=== PATIENT | female | born 1960 | race African-American/Black ===

== ENCOUNTER 2016-06-24 22:27 | Emergency (ER) | payer MEDICAID, OTHER ==
[~2016-06-24 22:27] MED LIST: ASPI81TA11 OR; ATOR80TA41 PO; EXTR500C PO; FLUT1SPR9; IBUP400T20 PO; IBUP800; LIPI80TA PO; LISI10TA3 PO; PANT20 PO; PRIL40CA PO; ROBA750T3 PO
[2016-06-24 22:29] VITALS: BP 150/83; PULSE 68; RESP 16; TEMP 98.4; O2SAT 96
--- NOTE | 2016-06-24 23:50 | PD ---
HPI Chief Complaint: Foreign Body Time Seen by Provider: 23:37 Travel History International Travel<30 days: No Contact w/Intl Traveler<30days: No Traveled to known affect area: No History of Present Illness HPI The patient is a 55 year old female who presents to the [facility] emergency department with a history of reportedly drinking a strawberry smoothie at approximately 9:30 PM when a family member mentioned that the smoothie seemed to be crunchier then it should be. She was in the process of swallowing her first sip when she realized that there were larger particles in her mouth. She sweeps these particles out and they appeared to be glass. She went through the bag of frozen strawberries and then realized small pieces of glass were in the bag. She reports having some discomfort in her throat. She denies having any abdominal pain. She denies eating or drinking since that episode. She reports that she has had some chest tightness and shortness of breath recently over the last 2 days, however she reports that she has been having more frequent panic attacks. The patient reports that she has not felt well recently since being seen by her primary care physician last week and being started on an antibiotic. She reports that she was also started on new muscle relaxer and omeprazole and sit a Protonix. The patient reports that she felt nauseated and thought it was related to the antibiotics, therefore she discontinued it. She reports that she was on the antibiotic related to a prolonged bout with diarrhea. The patient denies any recent fevers, cough, congestion,abdominal pain, vomiting, diarrhea, urinary symptoms, or neurologic symptoms. PFS Past Medical History Narrative Medical The patient's past medical history is significant for acid reflux, history of hypertension, history of low back pain, hyperlipidemia, seasonal allergies, history of panic attacks, history of renal insufficiency. Hx Anticoagulant Therapy: Yes Cancer: No Cardiovascular Problems: Yes High Cholesterol: Yes Cerebrovascular Accident: Yes Endocrine: No GERD: Yes Genitourinary: No Immune Disorder: No Psychiatric: No Reproductive: No Respiratory: Yes (HISTORY OF BRONCHITIS) Seizures: Yes (WHILE 1977) PNEUMOCCOCAL Vaccine (Year): 2 ?: Not Past Surgical History Narrative Surgical The patient's past surgical history is significant for a bilateral tubal ligation, cardiac surgery after trauma in 1964. Cardiac Surgery: Yes (AFTER TRAUMA 1964) Coronary Artery Bypass Graft: Yes Genitourinary Surgery: Yes (TUBAL LIGATION 1981) Social History Alcohol Use: Yes Tobacco Use: No Substance Use: No Allergies-Medications (Allergen,Severity, Reaction): Coded Allergies: Codeine (Verified Adverse Reaction, Severe, Nausea/Vomiting, 06/24/16) Reported Meds & Prescriptions Reported Meds & Active Scripts Active Lisinopril 10 Mg Tab 10 Mg PO DAILY Lipitor (Atorvastatin Calcium) 80 Mg Tab 80 Mg PO HS Prilosec 40 mg cap (Omeprazole) 40 Mg Cap 40 Mg PO BID Motrin 800 Mg Tab (Ibuprofen) 800 Mg Tab 800 Mg .XX TID PRN Robaxin-750 (Methocarbamol) 750 Mg Tab 750 Mg PO QID PRN Lipitor 80 Mg Tab (Atorvastatin) 80 Mg Tab 80 Mg PO HS Flonase Allergy Relief Ch (Fluticasone Propionate (Nasal)) 50 Mcg/Act Spr 1 [place] NA DAILY Protonix (Pantoprazole Sodium) 20 Mg Tabdr 20 Mg PO DAILY Aspirin EC 81 mg (Aspirin) 81 Mg Tab 81 Mg OR DAILY Reported Extra Strength Acetaminop (Acetaminophen) 500 Mg Cap 500 Mg PO Q4H PRN Ibuprofen 400 Mg Tab 400 Mg PO DAILY PRN Review of Systems Except as stated in HPI: all other systems reviewed are Neg General / Constitutional: No: Fever Eyes: No: Visual changes HENT: Positive: Sore Throat, Neck Pain, No: Headaches, Neck Stiffness Cardiovascular: Positive: Chest Pain or Discomfort, No: Dyspnea on exertion Respiratory: Positive: Shortness of Breath Gastrointestinal: Positive: Indigestion, No: Nausea, Vomiting, Diarrhea, Abdominal Pain, Changes in Bowel Habits, Loss of Appetite Genitourinary: No: Dysuria Musculoskeletal: No: Pain Skin: No Rash Neurologic: No: Weakness Psychiatric: No: Depression Endocrine: No: Polydipsia Hematologic/Lymphatic: No: Easy Bruising Physical Exam Narrative General: The patient is a well-developed well-nourished female in no acute distress. Head and Neck exam: Head is normocephalic atraumatic. Eyes: EOMI, pupils are equal round and reactive to light. Nose: Midline septum with pink mucous membranes Mouth: Dentition unremarkable. Moist mucus membranes. Posterior oropharynx is not erythematous. No tonsillar hypertrophy. Uvula midline. Airway patent. No visible trauma to the mouth, tongue, or posterior oropharynx. Neck: No palpable lymphadenopathy. No nuchal rigidity. No thyromegaly. Cardiovascular: Regular rate and rhythm without murmurs, gallops, or rubs. Lungs: Clear to auscultation bilaterally. No wheezes, rhonchi, or rales. Abdomen: Soft, without tenderness to palpation in all 4 quadrants of the abdomen. No guarding, rebound, or rigidity. Normal bowel sounds are audible. No tenderness on palpation of McBurney's point. Extremities: No clubbing, cyanosis, or edema. 2+ pulses in all 4 extremities. Back: No costovertebral angle tenderness to palpation. Neurologic Exam: Grossly nonfocal. Skin Exam: No rash noted. Intact skin that is warm and dry. Data Data Last Documented VS Vital Signs Date Time Temp Pulse Resp B/P Pulse Ox O2 Delivery O2 Flow Rate FiO2 06/25/16 02:00 70 15 119/82 98 06/24/16 22:29 98.4 Room Air Orders Electrocardiogram (06/24/16 23:22) Complete Blood Count With Diff (06/24/16 23:22) Comprehensive Metabolic Panel (06/24/16 23:22) Creatine Kinase (Cpk) (06/24/16 23:22) Ckmb (Isoenzyme) Profile (06/24/16 23:22) Troponin I (06/24/16 23:22) Prothrombin Time / Inr (Pt) (06/24/16 23:22) Act Partial Throm Time (Ptt) (06/24/16 23:22) Lipase (06/24/16 23:22) Thyroid Stimulating Hormone (06/24/16 23:22) Chest, Single Ap (06/24/16 23:22) Iv Access Insert/Monitor (06/24/16 23:22) Ecg Monitoring (06/24/16 23:22) Oximetry (06/24/16 23:22) Ct Soft Tiss Neck W/O Iv Cont (06/24/16 ) CKMB (06/25/16 00:15) CKMB% (06/25/16 00:15) Oral Rehydration (06/25/16 01:34) Labs Laboratory Tests Test 06/25/16 00:15 White Blood Count 7.3 TH/MM3 Red Blood Count 4.47 MIL/MM3 Hemoglobin 13.3 GM/DL Hematocrit 40.5 % Mean Corpuscular Volume 90.5 FL Mean Corpuscular Hemoglobin 29.8 PG Mean Corpuscular Hemoglobin 32.9 % Concent Red Cell Distribution Width 14.7 % Platelet Count 181 TH/MM3 Mean Platelet Volume 10.6 FL Neutrophils (%) (Auto) 49.2 % Lymphocytes (%) (Auto) 36.7 % Monocytes (%) (Auto) 11.4 % Eosinophils (%) (Auto) 1.9 % Basophils (%) (Auto) 0.8 % Neutrophils # (Auto) 3.6 TH/MM3 Lymphocytes # (Auto) 2.7 TH/MM3 Monocytes # (Auto) 0.8 TH/MM3 Eosinophils # (Auto) 0.1 TH/MM3 Basophils # (Auto) 0.1 TH/MM3 CBC Comment DIFF FINAL Differential Comment Prothrombin Time 11.1 SEC Prothromb Time International 1.0 RATIO Ratio Activated Partial 25.4 SEC Thromboplast Time Sodium Level 141 MEQ/L Potassium Level 4.1 MEQ/L Chloride Level 109 MEQ/L Carbon Dioxide Level 24.2 MEQ/L Anion Gap 8 MEQ/L Blood Urea Nitrogen 17 MG/DL Creatinine 1.26 MG/DL Estimat Glomerular Filtration 53 ML/MIN Rate Random Glucose 102 MG/DL Calcium Level 9.2 MG/DL Total Bilirubin 0.3 MG/DL Aspartate Amino Transf 37 U/L (AST/SGOT) Alanine Aminotransferase 71 U/L (ALT/SGPT) Alkaline Phosphatase 102 U/L Total Creatine Kinase 149 U/L Creatine Kinase MB 1.0 NG/ML Troponin I LESS THAN 0.02 NG/ML Total Protein 7.2 GM/DL Albumin 3.7 GM/DL Lipase 141 U/L Thyroid Stimulating Hormone 2.660 uIU/ML [address] [place] [address] Medical Decision Making Medical Screen Exam Complete: Yes Emergency Medical Condition: Yes Medical Record Reviewed: Yes Interpretation(s) Last Impressions Chest X-Ray 06/24/16 2322 Signed Impressions: Service Date/Time: Friday, June 24, 2016 23:54 - CONCLUSION: Mild cardiomegaly. Clear lungs. Brendon Miller Jr., MD Neck CT 06/24/16 0000 Signed Impressions: Service Date/Time: Saturday, June 25, 2016 00:29 - CONCLUSION: 1. No radiopaque foreign body. Brendon Miller Jr., MD Differential Diagnosis Esophagitis, versus ingestion of foreign body, versus acute coronary syndrome, versus anxiety disorder versus acid reflux Narrative Course During the course of the patients emergency department visit, the patients history, examination, and differential diagnosis were reviewed with the patient. The patient had IV access obtained and blood work sent for analysis. The patient was placed on a vehicle monitor technician with oximetry and blood pressure monitoring. An EKG was done on arrival. The patient's EKG shows a sinus rhythm heart rate of 61, no acute ST segment elevation. The patient is noted to have T waves inverted in V1, V2. The patient was able to tolerate by mouth liquids in the emergency department. The patients laboratory studies were reviewed and remarkable for a white count of 7.3, hemoglobin 13.3, platelets 181 with monocytes of 11.4, CMP is remarkable for chloride of 109, creatinine 1.26, GFR 53, ALT 71, CPK 149, troponin I less than 0.02, lipase 141, TSH 2.66, PT PTT unremarkable Radiology studies were reviewed and remarkable for a chest x-ray that shows mild cardiomegaly, otherwise no acute abnormality. CT scan of the soft tissues of the neck shows no radiopaque foreign bodies. The patient will be discharged home to follow-up with her primary care doctor. The patient is resting comfortably and feels better, is alert and in no distress. The patients results and examination findings were discussed with the patient. The repeat examination is unremarkable and benign. The history, exam, diagnostic testing, and current condition do not suggest any significant pathology to warrant further testing, continued ED treatment, admission, or surgical evaluation at this point. The vital signs have been stable. The patient does not have uncontrollable pain, intractable vomiting, or other significant symptoms. The patient's condition is stable and appropriate for discharge. The patient will pursue further outpatient evaluation with a primary care physician or other designated or consulting physician as indicated in the discharge instructions. The patient expressed understanding and was agreeable with this plan. Diagnosis Primary Impression: Sensation of foreign body in esophagus Additional Impressions: Anxiety disorder Qualified Code: F41.9 - Anxiety disorder, unspecified type Acid reflux Qualified Code: K21.9 - Gastroesophageal reflux disease, esophagitis presence not specified Referrals: Primary Care Physician 2 days Patient Instructions: General Instructions Med/Other Pt SpecificInfo: No Change to Meds Disposition: 01 DISCHARGE HOME Condition: Stable Kayleigh Dumont MD June 24, 2016 23:50
--- NOTE | 2016-06-25 | RADRPT ---
EXAM DATE/TIME: 06/24/2016 23:54 [facility] COMPARISON: CHEST SINGLE AP, October 23, 2010, 17:55. INDICATIONS : Shortness of breath MEDICAL HISTORY : None. SURGICAL HISTORY : CABG. ENCOUNTER: Initial ACUITY: 1 day PAIN SCORE: 0/10 LOCATION: Bilateral chest FINDINGS: A single view of the chest demonstrates the lungs to be symmetrically aerated without evidence of mas s, infiltrate or effusion. Mild cardiomegaly. Osseous structures are intact. Median sternotomy wires . CONCLUSION: Mild cardiomegaly. Clear lungs. Brendon Miller Jr., MD on June 24, 2016 at 23:59 Board Certified Radiologist. This report was verified electronically.
[2016-06-25 00:22] LABS: AUTOMATED NEUTROPHIL # 3.6 TH/MM3 (1.8-7.7); BASOPHIL # 0.1 TH/MM3 (0-0.2); BASOPHIL % 0.8 % (0.0-2.0); EOSINOPHIL # 0.1 TH/MM3 (0-0.4); EOSINOPHIL % 1.9 % (0.0-4.0); HEMATOCRIT 40.5 % (35.0-46.0); HEMO FLAGS DIFF FINAL; LYMPH % 36.7 % (9.0-44.0); LYMPHOCYTE # 2.7 TH/MM3 (1.0-4.8); MEAN CELL VOLUME 90.5 FL (80.0-100.0); MEAN CORPUSCULAR HEMOGLOBIN 29.8 PG (27.0-34.0); MEAN CORPUSCULAR HGB CONC 32.9 % (32.0-36.0); MONO % 11.4 % (0.0-8.0); NEUT % 49.2 % (16.0-70.0); PLATELET COUNT 181 TH/MM3 (150-450); RED BLOOD COUNT 4.47 MIL/MM3 (4.00-5.30); RED CELL DISTRIBUTION WIDTH 14.7 % (11.6-17.2); WHITE BLOOD COUNT 7.3 TH/MM3 (4.0-11.0)
[2016-06-25 00:33] LABS: APTT (PATIENT) 25.4 SEC (24.3-30.1); PROTHROMBIN TIME - PATIENT 11.1 SEC (9.8-11.6)
[2016-06-25 00:45] LABS: ANION GAP 8 MEQ/L (5-15); AST (GOT) 37 U/L (15-37); BICARBONATE 24.2 MEQ/L (21.0-32.0); BLOOD UREA NITROGEN 17 MG/DL (7-18); CHLORIDE 109 MEQ/L (98-107); GLOMERULAR FILTRATION RATE 53 ML/MIN (>89); POTASSIUM 4.1 MEQ/L (3.5-5.1); SODIUM (NA) 141 MEQ/L (136-145)
--- NOTE | 2016-06-25 00:47 | RADRPT ---
EXAM DATE/TIME: 06/25/2016 00:29 [facility] COMPARISON: No previous studies available for comparison. INDICATIONS : Evaluate for foreign body. Patient states finding glass in her smoothie. RADIATION DOSE: 16.21 CTDIvol (mGy) MEDICAL HISTORY : Cardiovascular disease. Gastroesophageal reflux disease. CVA. SURGICAL HISTORY : Tubal ligation. CABG ENCOUNTER: Initial ACUITY: 1 day PAIN SCORE: 2/10 LOCATION: neck TECHNIQUE: Volumetric scanning of the neck was performed. Using automated exposure control and adjustment of th e mA and/or kV according to patient size, radiation dose was kept as low as reasonably achievable to obtain optimal diagnostic quality images. FINDINGS: NASOPHARYNX: The nasopharyngeal airway has a normal configuration. No mucosal thickening or mass is seen. OROPHARYNX: The intrinsic muscles of the tongue are symmetric. The tonsillar pillars are intact. The prevertebr al soft tissues are not thickened. LARYNX: The supraglottic, glottic, and infraglottic structures are intact. PARAPHARYNGEAL: The parapharyngeal space is intact. SALIVARY GLANDS: The parotid and submandibular glands are intact. LYMPH NODES: No enlarged or necrotic-appearing nodes. THYROID: Homogeneous enhancement without evidence of nodule. BONES: Unremarkable. CONCLUSION: 1. No radiopaque foreign body. Brendon Miller Jr., MD on June 25, 2016 at 0:42 Board Certified Radiologist. This report was verified electronically.
[2016-06-25 00:55] LABS: ALKALINE PHOSPHATASE 102 U/L (45-117); ALT (GPT) 71 U/L (10-53); CREATINE KINASE 149 U/L (26-192); TOTAL BILIRUBIN ADULT 0.3 MG/DL (0.2-1.0)
[2016-06-25 02:00] VITALS: BP 119/82
--- NOTE | 2016-06-25 11:15 | EKG ---
Date Performed: 06/25/2016 Time Performed: 00:10:34 PTAGE: 55 years EKG: Sinus rhythm WITH FIRST DEGREE AV BLOCK ABNORMAL ECG PREVIOUS TRACING : 04/26/2011 00.19 DOCTOR: Yusuf Castro Interpretating Date/Time 06/25/2016 11:13:10
[2016-08-07] MEDS ORDERED: LISI10TA3 PO (13:06)
== END 2016-06-25 02:06 | disposition home or self-care (01) ==
LOC: NEPE 22:27
DX: F41.9 Anxiety disorder, unspecified (principal); R94.31 Abnormal electrocardiogram [ECG] [EKG]; K21.9 Gastro-esophageal reflux disease without esophagitis; I51.7 Cardiomegaly; I10 Essential (primary) hypertension; Z79.01 Long term (current) use of anticoagulants
CPT/HCPCS: 70490; 71010; 80053; 82550; 82552; 83690; 84443; 84484; 85025; 85610; 85730; 93005

== ENCOUNTER 2016-09-19 14:09 | Observation (INO) | payer MEDICAID ==
[~2016-09-19] VITALS: Ht 157.5 cm; Wt 89.0 kg
[2016-09-19] VITALS (8 sets, daily range): BP systolic 147–225; BP diastolic 74–109; PULSE 58–80; RESP 20–22; TEMP 98.2; O2SAT 96–99
--- NOTE | 2016-09-19 14:18 | PD ---
Physical Exam Time Seen by Provider: 14:16 Narrative 55yo F c/o chest pain, SOB, and HTN since Saturday. Had upper and lower colonoscopy on Saturday and says symptoms have worsened since then. Took BP medication this morning. Denies hemoptysis. +mucous production. Patient seen in triage. VS reviewed. Patient awaiting bed placement. Data Data Last Documented VS Vital Signs Date Time Temp Pulse Resp B/P Pulse Ox O2 Delivery O2 Flow Rate FiO2 09/19/16 14:10 98.2 58 22 225/109 96 MDM Supervised Visit with RAFAEL: Mitra Rodrigues Sep 19, 2016 14:18
[2016-09-19 15:08] LABS: AUTOMATED NEUTROPHIL # 2.5 TH/MM3 (1.8-7.7); BASOPHIL % 0.7 % (0.0-2.0); EOSINOPHIL # 0.1 TH/MM3 (0-0.4); EOSINOPHIL % 1.4 % (0.0-4.0); HEMATOCRIT 41.3 % (35.0-46.0); HEMO FLAGS DIFF FINAL; LYMPH % 45.2 % (9.0-44.0); LYMPHOCYTE # 2.9 TH/MM3 (1.0-4.8); MEAN CELL VOLUME 90.7 FL (80.0-100.0); MEAN CORPUSCULAR HEMOGLOBIN 29.9 PG (27.0-34.0); MONO % 12.8 % (0.0-8.0); NEUT % 39.9 % (16.0-70.0); PLATELET COUNT 207 TH/MM3 (150-450); RED BLOOD COUNT 4.56 MIL/MM3 (4.00-5.30); RED CELL DISTRIBUTION WIDTH 15.4 % (11.6-17.2); WHITE BLOOD COUNT 6.4 TH/MM3 (4.0-11.0)
--- NOTE | 2016-09-19 15:16 | RADRPT ---
EXAM DATE/TIME: 09/19/2016 15:05 [facility] COMPARISON: No previous studies available for comparison. INDICATIONS : Chest pain, shortness of breath, and high blood pressure for 6 days. MEDICAL HISTORY : Cardiovascular disease. Gastroesophageal reflux disease. CVA. SURGICAL HISTORY : CABG. ENCOUNTER: Initial ACUITY: 4 - 6 days PAIN SCORE: 2/10 LOCATION: Bilateral chest FINDINGS: The lungs are clear. The heart is minimally enlarged. The pulmonary vascularity is normal. There is n o evidence for infiltrate or failure. The portion of the bony skeleton visualized is unremarkable. CONCLUSION: Compensated cardiomegaly otherwise negative Zhen Marcelino MD FACR on September 19, 2016 at 15:14 Board Certified Radiologist. This report was verified electronically.
[2016-09-19 15:21] LABS: ANION GAP 7 MEQ/L (5-15); BICARBONATE 25.6 MEQ/L (21.0-32.0); BLOOD UREA NITROGEN 17 MG/DL (7-18); CHLORIDE 108 MEQ/L (98-107); GLOMERULAR FILTRATION RATE 85 ML/MIN (>89); POTASSIUM 3.7 MEQ/L (3.5-5.1); SODIUM (NA) 141 MEQ/L (136-145)
[2016-09-19 15:27] LABS: CREATINE KINASE 94 U/L (26-192)
[2016-09-19 15:55] LABS: PROTHROMBIN TIME - PATIENT 11.1 SEC (9.8-11.6)
[2016-09-19] MEDS ORDERED: ONDANSETRON HCL 4 MG/2 ML VIAL IV PUSH ONE (16:30)
[2016-09-19] MEDS ORDERED: hydrALAZINE HCL 20 MG/ML VIAL IV PUSH ONE (16:30)
[2016-09-19] MEDS ORDERED: SODIUM CHLORIDE 0.9% FLUSH 10 ML FLUSH IVF PRN (16:30)
--- NOTE | 2016-09-19 16:48 | PD ---
HPI Chief Complaint: Cardiac Complaint Time Seen by Provider: 16:25 Travel History International Travel<30 days: No Contact w/Intl Traveler<30days: No Traveled to known affect area: No History of Present Illness HPI 55 YO F PMH of HTN, CVA presents to the ED for evaluation of 4 day history of central chest pain, radiating under her right breast. Onset while sleeping, described as tightness. Patient states that the pain waxes and wanes. She endorses associated shortness of breath and intermittent palpitations. Patient also states that "my bloods been high." She endorses dizziness, headache, nausea and mild blurred vision since this morning. She denies difficulties with speech, facial droop, extremity weakness. She endorses compliance with her daily lisinopril. She's taken no medicines to treat her symptoms. She is followed by Dr. Marcus. [facility] Past Medical History Hx Anticoagulant Therapy: Yes Cancer: No Cardiovascular Problems: Yes High Cholesterol: Yes Cerebrovascular Accident: Yes Endocrine: No GERD: Yes Genitourinary: No Immune Disorder: No Implanted Vascular Access Dvce: No Psychiatric: No Reproductive: No Respiratory: Yes (HISTORY OF BRONCHITIS) Seizures: Yes (WHILE 1977) PNEUMOCCOCAL Vaccine (Year): 2 ?: Not Past Surgical History Cardiac Surgery: Yes (AFTER TRAUMA 1964) Coronary Artery Bypass Graft: Yes Genitourinary Surgery: Yes (TUBAL LIGATION 1981) Social History Alcohol Use: No Tobacco Use: No Substance Use: No Allergies-Medications (Allergen,Severity, Reaction): Coded Allergies: Codeine (Verified Adverse Reaction, Severe, Nausea/Vomiting, 06/24/16) Reported Meds & Prescriptions Reported Meds & Active Scripts Active Lisinopril 10 Mg Tab 10 Mg PO DAILY Reported Proventil Hfa 6.7 GM Inh (Albuterol Sulfate) 90 Mcg/Act Aer 2 Puff INH Q6H PRN Naproxen 500 Mg Tab 500 Mg PO BID Robaxin (Methocarbamol) 750 Mg Tab 750 Mg PO QID Pantoprazole (Pantoprazole Sodium) 40 Mg Tab 40 Mg PO DAILY Aspirin 81 Mg Chew 81 Mg CHEW DAILY Review of Systems Except as stated in HPI: all other systems reviewed are Neg Physical Exam Narrative GENERAL: Well-nourished, well-developed obese black female in no acute distress. SKIN: Focused skin assessment warm/dry. HEAD: Normocephalic. EYES: No scleral icterus. No injection or drainage. NECK: Supple, trachea midline. No JVD or lymphadenopathy. CARDIOVASCULAR: Regular rate and rhythm without murmurs, gallops, or rubs. CHEST: Nontender throughout without deformity or crepitus. No retractions or use of accessory muscles. RESPIRATORY: Breath sounds equal bilaterally. No accessory muscle use. GASTROINTESTINAL: Abdomen soft, non-tender, nondistended. Chapman sign negative. Active bowel sounds. MUSCULOSKELETAL: No cyanosis, or edema. NEUROLOGICAL: Awake and alert. Cranial nerves II through XII intact. Motor and sensory grossly within normal limits. Five out of 5 muscle strength in all muscle groups. Normal speech. BACK: Nontender without obvious deformity. No CVA tenderness. Data Data Last Documented VS Vital Signs Date Time Temp Pulse Resp B/P Pulse Ox O2 Delivery O2 Flow Rate FiO2 09/19/16 18:05 76 20 155/86 09/19/16 16:18 99 09/19/16 16:18 Nasal Cannula 2 09/19/16 14:10 98.2 Orders Electrocardiogram (09/19/16 14:19) Complete Blood Count With Diff (09/19/16 14:19) Basic Metabolic Panel (Bmp) (09/19/16 14:19) Ckmb (Isoenzyme) Profile (09/19/16 14:19) Troponin I (09/19/16 14:19) Iv Access Insert/Monitor (09/19/16 14:19) Ecg Monitoring (09/19/16 14:19) Oxygen Administration (09/19/16 14:19) Oximetry (09/19/16 14:19) Prothrombin Time / Inr (Pt) (09/19/16 14:19) Act Partial Throm Time (Ptt) (09/19/16 14:19) B-Type Natriuretic Peptide (09/19/16 14:19) D-Dimer (09/19/16 14:19) Chest, Pa & Lat (09/19/16 14:19) Urinalysis - C+S If Indicated (09/19/16 16:30) Ct Pulmonary Angiogram (09/19/16 16:30) Sodium Chloride 0.9% Flush (Ns Flush) (09/19/16 16:30) Hydralazine Inj (Apresoline Inj) (09/19/16 16:30) Ondansetron Inj (Zofran Inj) (09/19/16 16:30) Chest, Single Ap (09/19/16 16:30) Ct Brain W/O Iv Contrast(Rout) (09/19/16 ) Iohexol 350 Inj (Omnipaque 350 Inj) (09/19/16 18:21) Acetaminophen (Tylenol) (09/19/16 18:45) Hepatic Functional Panel (09/19/16 19:10) Prochlorperazine Inj (Compazine Inj) (09/19/16 19:30) Diphenhydramine Inj (Benadryl Inj) (09/19/16 19:30) Albuterol Neb (Albuterol Neb) (09/19/16 19:30) Diet Heart Healthy (09/19/16 Dinner) Place In Observation (09/19/16 19:31) Activity Bed Rest With Brp (09/19/16 19:31) Vital Signs (Adult) Q4H (09/19/16 19:31) Cardiac Rhythm .As Directed (09/19/16 19:31) Notify Dr: Other .PRN (09/19/16 19:31) Notify Dr. Parameters (09/19/16 19:31) Resp Oxygen Nasal Cannula (09/19/16 ) Ckmb (Isoenzyme) Profile (09/19/16 19:31) Ckmb (Isoenzyme) Profile (09/19/16 22:31) Troponin I (09/19/16 19:31) Troponin I (09/19/16 22:31) Electrocardiogram (09/19/16 19:31) Electrocardiogram (09/19/16 22:31) ^ Obtain (09/19/16 19:31) Sodium Chloride 0.9% Flush (Ns Flush) (09/19/16 19:45) Sodium Chloride 0.9% Flush (Ns Flush) (09/19/16 21:00) Integrative Medicine Physician / Telemetry [id number].[id number] (09/19/16 19:31) Admit Order (Ed Use Only) (09/19/16 19:31) CKMB (09/19/16 20:45) CKMB% (09/19/16 20:45) Labs Laboratory Tests Test 09/19/16 14:59 White Blood Count 6.4 TH/MM3 Red Blood Count 4.56 MIL/MM3 Hemoglobin 13.6 GM/DL Hematocrit 41.3 % Mean Corpuscular Volume 90.7 FL Mean Corpuscular Hemoglobin 29.9 PG Mean Corpuscular Hemoglobin 33.0 % Concent Red Cell Distribution Width 15.4 % Platelet Count 207 TH/MM3 Mean Platelet Volume 10.3 FL Neutrophils (%) (Auto) 39.9 % Lymphocytes (%) (Auto) 45.2 % Monocytes (%) (Auto) 12.8 % Eosinophils (%) (Auto) 1.4 % Basophils (%) (Auto) 0.7 % Neutrophils # (Auto) 2.5 TH/MM3 Lymphocytes # (Auto) 2.9 TH/MM3 Monocytes # (Auto) 0.8 TH/MM3 Eosinophils # (Auto) 0.1 TH/MM3 Basophils # (Auto) 0.0 TH/MM3 CBC Comment DIFF FINAL Differential Comment Prothrombin Time 11.1 SEC Prothromb Time International 1.0 RATIO Ratio Activated Partial 26.0 SEC Thromboplast Time D-Dimer Quantitative (PE/DVT) 1.06 MG/L FEU Sodium Level 141 MEQ/L Potassium Level 3.7 MEQ/L Chloride Level 108 MEQ/L Carbon Dioxide Level 25.6 MEQ/L Anion Gap 7 MEQ/L Blood Urea Nitrogen 17 MG/DL Creatinine 0.84 MG/DL Estimat Glomerular Filtration 85 ML/MIN Rate Random Glucose 74 MG/DL Calcium Level 9.4 MG/DL Total Creatine Kinase 94 U/L Troponin I LESS THAN 0.02 NG/ML B-Type Natriuretic Peptide 126 PG/ML MDM Medical Decision Making Medical Screen Exam Complete: Yes Emergency Medical Condition: Yes Differential Diagnosis PE versus ACS versus hypertensive urgency versus hypertensive emergency versus ICH versus other Narrative Course 55 YO F PMH of HTN, CVA presents to the ED for evaluation of 4 day history of central chest pain, radiating under her right breast. Onset while sleeping, described as tightness, waxes and wanes. She endorses associated shortness of breath and intermittent palpitations. Patient also states that "my bloods been high." She endorses dizziness, headache, nausea and mild blurred vision since this morning. PCP Dr. Marcus. Vitals reviewed. Patient is hypertensive on presentation. Physical exam reveals an obese AAA female in no acute distress. No focal neuro deficits. Chest is clear to auscultation bilaterally. No appreciable M/R/G. No lower extremity edema. She was administered 10 mg hydralazine IV. BP 155/86 on recheck. She was administered IV Compazine and Benadryl and endorsed improvement of her headache. EKG rate 56, sinus bradycardia. SD interval 209, QRS 97, QTC 4 22. T wave abnormality in V3/V4, similar to prior EKG 06/24/16. No acute ST changes. Reviewed by Dr. uCrrie. Cardiac and then negative 1. CXR without acute process per radiology read. CBC, coags, CMP unremarkable. D-dimer 1.06. BNP 126. CTA negative for PE. Head CT negative for acute process. I discussed the patient, workup, plan with Dr. Johnson. Given her risk factors feel admission to chest pain center is warranted. The patient is agreeable to admission to the chest pain center. Please see [facility] notes for disposition. Monet Torres Sep 19, 2016 16:48
--- NOTE | 2016-09-19 16:50 | RADRPT ---
EXAM DATE/TIME: 09/19/2016 16:27 [facility] COMPARISON: CHEST SINGLE AP, June 24, 2016, 23:54. INDICATIONS : Chest pain. MEDICAL HISTORY : Cardiovascular disease. Gastroesophageal reflux disease. CVA. SURGICAL HISTORY : CABG. ENCOUNTER: Initial ACUITY: 4 - 6 days PAIN SCORE: 5/10 LOCATION: Bilateral chest FINDINGS: There is previous bypass with compensated cardiomegaly. There is no overt congestive failure. Anoth er consolidation pleural effusion. The portion of the bony skeleton visualized is unremarkable. CONCLUSION: Bypass with mild compensated cardiomegaly Zhen Marcelino MD FACR on September 19, 2016 at 16:47 Board Certified Radiologist. This report was verified electronically.
[2016-09-19] MEDS ORDERED: PANT40TA3 PO (18:03)
[2016-09-19] MEDS ORDERED: ROBA750T PO (18:03)
[2016-09-19] MEDS ORDERED: ASPI81CH CHEW (18:03)
[2016-09-19] MEDS ORDERED: NAPR500T PO (18:03)
[2016-09-19] MEDS ORDERED: ALBU6.7H INH (18:04)
[2016-09-19] MEDS ORDERED: IOHEXOL 350 MG/ML 10 ML VIAL (for RAD DIAG) IV ONE (18:21)
--- NOTE | 2016-09-19 18:42 | RADRPT ---
EXAM DATE/TIME: 09/19/2016 18:16 [facility] COMPARISON: MRI BRAIN W/O CONTRAST, October 24, 2010, 9:52. CT BRAIN W/O CONTRAST, October 23, 2010, 18:15. INDICATIONS : Patient complains of dizziness and short of breath. RADIATION DOSE: 45.89 CTDIvol (mGy) MEDICAL HISTORY : Stroke. Hypertension. Seizures. SURGICAL HISTORY : CABG Tubal ligation.Endoscopy last Saturday. ENCOUNTER: Initial ACUITY: 3 days PAIN SCALE: 5/10 LOCATION: Bilateral cranial TECHNIQUE: Multiple contiguous axial images were obtained of the head. Using automated exposure control and adj ustment of the mA and/or kV according to patient size, radiation dose was kept as low as reasonably a chievable to obtain optimal diagnostic quality images. DICOM format image data is available electro nically for review and comparison. FINDINGS: Porencephalic areas in the left mid laura, left medial thalamus, and lacunar infarcts in the right anastacio bus pallidus are stable in appearance when compared to prior CT and have previously also been evaluat ed with MR. There is good whiteside-white matter differentiation. The ventricles are normal in size. No evidence of acute hemorrhage, acute infarction, or extra axial fluid collections. Wide windows for bony detail demonstrate the calvarium to be intact. CONCLUSION: 1. No acute findings. 2. 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 Brendon Trejo MD on September 19, 2016 at 18:37 Board Certified Radiologist. This report was verified electronically.
[2016-09-19] MEDS ORDERED: ACETAMINOPHEN 325 MG TAB PO ONE (18:45)
--- NOTE | 2016-09-19 18:58 | RADRPT ---
EXAM DATE/TIME: 09/19/2016 18:22 [facility] COMPARISON: No previous studies available for comparison. INDICATIONS : Short of breath. IV CONTRAST: 75 cc Omnipaque 350 (iohexol) IV RADIATION DOSE: 23.14 CTDIvol (mGy) MEDICAL HISTORY : Seizures. Stroke Hypertension. SURGICAL HISTORY : Tubal ligation. CABGEndoscopy done last Saturday. ENCOUNTER: Initial ACUITY: 3 days PAIN SCALE: 5/10 LOCATION: Bilateral chest TECHNIQUE: Volumetric scanning of the chest was performed using a pulmonary embolism protocol MIP images were re constructed. Using automated exposure control and adjustment of the mA and/or kV according to patien t size, radiation dose was kept as low as reasonably achievable to obtain optimal diagnostic quality images. DICOM format image data is available electronically for review and comparison. Follow-up recommendations for incidentally detected pulmonary nodules are based at a minimum on nodul e size and patient risk factors according to Fleischner Society Guidelines. FINDINGS: PULMONARY ARTERIES: No filling defects are seen in the pulmonary arteries through the segmental level. LUNGS: There is no consolidation or pneumothorax . No concerning pulmonary nodule is visualized. PLEURAE: There is no pleural thickening or pleural effusion. MEDIASTINUM: There is good visualization of the great vessels of the middle mediastinum. No evidence of mediastin al or hilar adenopathy/mass. CONCLUSION: The study is negative for pulmonary embolism. Brendon Trejo MD on September 19, 2016 at 18:55 Board Certified Radiologist. This report was verified electronically.
[2016-09-19] MEDS ORDERED: diphenhydrAMINE HCL 50 MG/ML VIAL IVP ONE (19:30)
[2016-09-19] MEDS ORDERED: PROCHLORPERAZINE INJ 10 MG/2 ML VIAL IVP ONE (19:30)
[2016-09-19] MEDS: RESP: ALBUTEROL 2.5 MG/3 ML NEB (SCH) INH (19:38)
[2016-09-19] MEDS ORDERED: SODIUM CHLORIDE 0.9% FLUSH 10 ML FLUSH IV FLUSH PRN (19:45)
[2016-09-19] MEDS: SODIUM CHLORIDE 0.9% FLUSH 10 ML FLUSH IV FLUSH SCH ×2 (21:03→21:04)
[2016-09-19 21:22] LABS: ALKALINE PHOSPHATASE 80 U/L (45-117); INDIRECT BILIRUBIN 0.3 MG/DL (0.0-0.8); TOTAL BILIRUBIN ADULT 0.4 MG/DL (0.2-1.0)
[2016-09-19 21:23] LABS: ALT (GPT) 33 U/L (10-53)
[2016-09-19 21:24] LABS: CREATINE KINASE 148 U/L (26-192)
[2016-09-19 21:25] LABS: AST (GOT) 41 U/L (15-37)
[2016-09-19 21:36] LABS: CKMB LESS THAN 0.5 NG/ML (0.5-3.6)
[2016-09-20 01:17] LABS: CREATINE KINASE 79 U/L (26-192)
[2016-09-20 04:37] VITALS: PULSE 72
[2016-09-20 05:38] VITALS: BP 124/70; PULSE 60; RESP 18; TEMP 98.4; O2SAT 100
[2016-09-20 07:39] VITALS: BP 115/59; PULSE 70; RESP 14; TEMP 98.7; O2SAT 95
[2016-09-20] MEDS ORDERED: PANTOPRAZOLE SOD 40 MG DELAYED RELEASE TAB PO SCH (09:00)
[2016-09-20] MEDS ORDERED: LISINOPRIL 10 MG TAB PO SCH (09:00)
[2016-09-20] MEDS ORDERED: IBUPROFEN 600 MG TAB PO ONE (09:30)
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
--- NOTE | 2016-09-20 12:03 | RADRPT ---
EXAM DATE/TIME: 09/20/2016 09:29 [facility] COMPARISON: CT PULMONARY ANGIOGRAM, September 19, 2016, 18:22. INDICATIONS : Substernal chest pain with dyspnea. Angina DOSE: 26.9 mCi Tc99m Myoview at stress 8.8 mCi Tc99m Myoview at rest REST HEART RATE: 79 BPM TARGET HEART RATE: 140 BPM MAX HEART RATE: 146 BPM REST BLOOD PRESSURE: 174/96 mmHg MAX BLOOD PRESSURE: none EJECTION FRACTION: > 70% MEDICAL HISTORY : Gastroesophageal reflux disease. Hypertension. Stroke. SURGICAL HISTORY : Tubal ligation. ENCOUNTER: Initial ACUITY: 3 days PAIN SCALE: 6/10 LOCATION: Substernal chest TECHNIQUE: The patient underwent upright treadmill exercise in the chest pain center. Continuous ECG tracing wa s monitored during stress. Gated SPECT imaging was performed after stress, and conventional SPECT im aging was performed at rest. The examination was performed on a SPECT/CT scanner, both attenuation-c orrected and non-corrected datasets were reviewed. FINDINGS: DISTRIBUTION: The maximum perfused segment at stress is in the anterolateral wall. PERFUSION STUDY: The pattern of perfusion at stress is within normal limits. No fixed or reversible perfusion defect i s identified. GATED STUDY: There is intact wall motion and thickening without hypokinetic or dyskinetic segments. CONCLUSION: 1. Left ventricle perfusion is within normal limits. 2. Normal left ventricle wall motion with calculated ejection fraction greater than 70%. RISK CATEGORY: Low (<1% Annual Mortality Rate) Ketan Jefferson MD on September 20, 2016 at 11:59 Board Certified Radiologist. This report was verified electronically.
[2016-09-20] MEDS ORDERED: AMLO5TAB2 PO (12:49)
--- NOTE | 2016-09-20 12:50 | HHI.DCPOC ---
Discharge Care Plan Diagnosis: (1) Chest pain (2) Hypertension Goals to Promote Your Health * To prevent worsening of your condition and complications * To maintain your health at the optimal level Directions to Meet Your Goals Take your medications as prescribed Follow your dietary instruction Follow activity as directed Keep your appointments as scheduled Take your immunizations and boosters as scheduled If your symptoms worsen call your PCP, if no PCP go to Urgent Care Center or Emergency Room Smoking is Dangerous to Your Health. Avoid second hand smoke Call the 24-hour hour crisis hotline for domestic abuse at Domo Butler Sep 20, 2016 12:50
--- NOTE | 2016-09-20 17:19 | TR ---
Date Performed: 09/20/2016 Time Performed: 10:35:16 DOCTOR: Latisha Maldonado DRUG LIST: CLINICAL HISTORY: REASON FOR TEST: Chest pain REASON FOR ENDING: OBSERVATION: CONCLUSION: Antony protocol and NUC ETT performed. Test stopped secondary to reaching target maxi mum heart rate secondary to leg fatigue. No reproducible chest discomfort or pain. Maximum SD=146 Tar get HR Achieved=88.0% Maximum BJ=923/96 Total Exercise Time=5:41. COMMENTS:
--- NOTE | 2016-09-20 17:24 | EKG ---
Date Performed: 09/20/2016 Time Performed: 00:30:20 PTAGE: 55 years EKG: Sinus rhythm WITH FIRST DEGREE AV BLOCK NONSPECIFIC T-WAVE ABNORMALITY ABNORMAL ECG Since PREVIOUS TRACING , no significant change noted PREVIOUS TRACIN09/19/2016 20.52 DOCTOR: Latisha Maldonado Interpretating Date/Time 09/20/2016 17:23:33
--- NOTE | 2016-09-20 17:26 | EKG ---
Date Performed: 09/19/2016 Time Performed: 20:52:32 PTAGE: 55 years EKG: Sinus rhythm NONSPECIFIC ST & T-WAVE ABNORMALITY BORDERLINE ECG Since PREVIOUS TRACING , T waves now flat PREVIOUS TRACIN09/19/2016 14.28 DOCTOR: Latisha Maldonado Interpretating Date/Time 09/20/2016 17:26:04
--- NOTE | 2016-09-20 17:32 | EKG ---
Date Performed: 09/19/2016 Time Performed: 14:28:15 PTAGE: 55 years EKG: SINUS BRADYCARDIA ST DEVIATION AND MODERATE T-WAVE ABNORMALITY, CONSIDER ANTERIOR ISCHEMIA ABNORMAL ECG Since PREVIOUS TRACING , no significant change noted PREVIOUS TRACIN06/25/2016 00.10 DOCTOR: Latisha Maldonado Interpretating Date/Time 09/20/2016 17:31:51
== END 2016-09-20 13:29 | disposition home or self-care (01) ==
LOC: NEPE 14:09 → NEDA 19:33 → NEPHCDU 09-20 01:30
PROVIDERS: ADMIT Internal Medicine Cardiovascular Disease; ATTEND Internal Medicine Cardiovascular Disease
DX: R07.89 Other chest pain (principal); I10 Essential (primary) hypertension; R06.02 Shortness of breath; R11.0 Nausea; K21.9 Gastro-esophageal reflux disease without esophagitis; I51.7 Cardiomegaly; E78.5 Hyperlipidemia, unspecified; E78.00 Pure hypercholesterolemia, unspecified; Z79.82 Long term (current) use of aspirin; Z86.73 Personal history of transient ischemic attack (TIA), and cerebral infarction without residual deficits; I44.0 Atrioventricular block, first degree; E66.9 Obesity, unspecified; Z79.899 Other long term (current) drug therapy; Z87.891 Personal history of nicotine dependence; I71.4 Abdominal aortic aneurysm, without rupture; Z95.1 Presence of aortocoronary bypass graft
CPT/HCPCS: 70450; 71010; 71020; 71275; 78452; 80048; 80076; 82550; 82552; 83880; 84484; 85025; 85379; 85610; 85730; 93005; 93017; 94640; 94664; 96374; 96375; 99285; A9502; G0378; J0360; J0780; J1200; J2405; J7613; Q9967

== ENCOUNTER 2017-03-23 09:32 | Observation (INO) | payer BC, MEDICAID ==
[2017-03-23] VITALS (9 sets, daily range): BP systolic 102–148; BP diastolic 57–95; PULSE 58–97; RESP 16–19; TEMP 96.9–98.1; O2SAT 96–100
[~2017-03-23] VITALS: Ht 157.5 cm; Wt 90.0 kg
[~2017-03-23 09:32] MED LIST changes: +ALBU6.7H INH; +AMLO5TAB2 PO; +ASPI-516 CHEW; -ASPI81TA11 OR; -ATOR80TA41 PO; -EXTR500C PO; -FLUT1SPR9; -IBUP400T20 PO; -IBUP800; -LIPI80TA PO; +NAPR500T2 PO; -PANT20 PO; +PANT40TA3 PO; -PRIL40CA PO; +ROBA750T PO; -ROBA750T3 PO
[2017-03-23] MEDS ORDERED: ATOR20TA15 PO (09:57)
[2017-03-23] MEDS ORDERED: AMLO10TA2 PO (09:57)
[2017-03-23 10:09] LABS: AUTOMATED NEUTROPHIL # 2.4 TH/MM3 (1.8-7.7); BASOPHIL % 0.7 % (0.0-2.0); EOSINOPHIL % 0.7 % (0.0-4.0); HEMATOCRIT 44.2 % (35.0-46.0); LYMPH % 48.1 % (9.0-44.0); LYMPHOCYTE # 2.9 TH/MM3 (1.0-4.8); MEAN CORPUSCULAR HEMOGLOBIN 30.8 PG (27.0-34.0); MEAN CORPUSCULAR HGB CONC 33.9 % (32.0-36.0); MEAN PLATELET VOLUME 10.5 FL (7.0-11.0); MONO % 10.7 % (0.0-8.0); MONOCYTE # 0.6 TH/MM3 (0-0.9); NEUT % 39.8 % (16.0-70.0); PLATELET COUNT 219 TH/MM3 (150-450); RED BLOOD COUNT 4.86 MIL/MM3 (4.00-5.30); RED CELL DISTRIBUTION WIDTH 14.9 % (11.6-17.2)
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
[2017-03-23 10:19] LABS: INTERNATIONAL NORMALIZED RATIO 1.1 RATIO; PROTHROMBIN TIME - PATIENT 10.8 SEC (9.8-11.6)
[2017-03-23 10:35] LABS: BICARBONATE 23.4 MEQ/L (21.0-32.0); CALCIUM 9.1 MG/DL (8.5-10.1); CREATININE 1.21 MG/DL (0.50-1.00)
--- NOTE | 2017-03-23 11:22 | RADRPT ---
EXAM DATE/TIME: 03/23/2017 11:09 [facility] COMPARISON: CT BRAIN W/O CONTRAST, September 19, 2016, 18:16. INDICATIONS : Left upper extremity weakness today. RADIATION DOSE: 56.77 CTDIvol (mGy) MEDICAL HISTORY : Stroke. Seizures. Hypertension. SURGICAL HISTORY : CABG ENCOUNTER: Initial ACUITY: 1 day PAIN SCALE: 2/10 LOCATION: Bilateral head TECHNIQUE: Multiple contiguous axial images were obtained of the head. Using automated exposure control and adj ustment of the mA and/or kV according to patient size, radiation dose was kept as low as reasonably a chievable to obtain optimal diagnostic quality images. DICOM format image data is available electro nically for review and comparison. FINDINGS: CEREBRUM: Chronic ischemic changes in the brainstem and left thalamus. An old lacunar infarct right basal gangl ia. The ventricles are normal for age. No evidence of midline shift, mass lesion, hemorrhage or acut e infarction. No extra-axial fluid collections are seen. POSTERIOR FOSSA: The cerebellum is intact. The 4th ventricle is midline. The cerebellopontine angle is unremarkable. EXTRACRANIAL: The visualized portion of the orbits is intact. SKULL: The calvaria is intact. No evidence of skull fracture. CONCLUSION: Chronic ischemic changes. No acute intracranial abnormality. Sb Guerrero MD on March 23, 2017 at 11:17 Board Certified Radiologist. This report was verified electronically.
[2017-03-23] MEDS ORDERED: ACETAMINOPHEN 325 MG TAB PO ONE (12:00)
[2017-03-23] MEDS ORDERED: SODIUM CHLORIDE 0.9% FLUSH 10 ML FLUSH IV FLUSH PRN (15:15)
[2017-03-23] MEDS ORDERED: ENALAPRILAT 1.25 MG/ML VIAL IV PUSH PRN (15:15)
[2017-03-23] MEDS ORDERED: ALBUTEROL SULFATE 90 MCG/ACT HFA 8 GM INHALER INH PRN (15:15)
[2017-03-23] MEDS ORDERED: DEXTROSE 50% IN WATER 50 ML VIAL(D50) IV PUSH PRN (15:15)
[2017-03-23] MEDS ORDERED: GLUCAGON 1 MG/ML VIAL OTHER PRN (15:15)
--- NOTE | 2017-03-23 16:19 | RADRPT ---
EXAM DATE/TIME: 03/23/2017 15:37 [facility] COMPARISON: CT BRAIN W/O CONTRAST, September 19, 2016, 18:16. INDICATIONS : Left sided weakness. MEDICAL HISTORY : Hypertension. Cardiovascular disease Cardiovascular disease. SURGICAL HISTORY : CABG Tubal ligation. ENCOUNTER: Initial ACUITY: 1 day PAIN SCORE: 0/10 LOCATION: cranial TECHNIQUE: Multiplanar, multisequence MRI of the brain was performed without contrast. FINDINGS: There is no evidence for intracranial hemorrhage, mass effect, mass lesions, edema, or extra-axial fl uid collections. There are no signs of acute infarction for technique. The diffusion portion is unre markable. Slight degree of brain atrophy is seen. Slight periventricular white matter changes are see n nonspecific mostly consistent with chronic small vessel ischemic changes. Approximate 1.1 cm old la cunar infarct in medial thalamus on the left is again seen and there are also old ischemic changes an d/or lacunar infarctions within the laura chronic in nature. CONCLUSION: Chronic atrophic and small vessel ischemic changes without any evidence for acute hem orrhage or mass effect. Sushant Newberry MD on March 23, 2017 at 16:15 Board Certified Radiologist. This report was verified electronically.
--- NOTE | 2017-03-23 16:21 | RADRPT ---
EXAM DATE/TIME: 03/23/2017 15:37 [facility] COMPARISON: MRI BRAIN W/O CONTRAST, March 23, 2017, 15:37. CT BRAIN W/O CONTRAST, March 23, 2017, 11:09. INDICATIONS : Left sided weakness. MEDICAL HISTORY : Hypertension. Cardiovascular disease Hypercholesterolemia. SURGICAL HISTORY : CABG Tubal ligation. ENCOUNTER: Initial ACUITY: 1 day PAIN SCORE: 0/10 LOCATION: cranial Please note a normal MRA of the brain does not entirely exclude the possibility of a small aneurysm, nor the possibility of distal intracranial vessel disease. TECHNIQUE: 3D time of flight MRA was performed. Source images, multiplanar STS MIP, and 3D volume MIP reconstru ctions were reviewed. FINDINGS: No significant vascular malformations, vessel truncation or aneurysmal dilatations are seen. CONCLUSION: Unremarkable study. Sushant Newberry MD on March 23, 2017 at 16:17 Board Certified Radiologist. This report was verified electronically.
[2017-03-23] MEDS: HEPARIN SODIUM - SQ 10,000 UNITS/ML VIAL SQ SCH (17:31)
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
[2017-03-23] MEDS: INSULIN ASPART SUPPLEMENTAL SCALE SQ SCH ×2 (18:10→20:13)
[2017-03-23] MEDS: ACETAMINOPHEN 325 MG TAB PO PRN (18:48)
--- NOTE | 2017-03-23 18:57 | RADRPT ---
EXAM DATE/TIME: 03/23/2017 18:25 [facility] COMPARISON: No previous studies available for comparison. INDICATIONS : Cerebrovascular accident. MEDICAL HISTORY : Hypercholesterolemia. CVA. Seizures. HTN. Bronchitis. GERD. Syphilis. Pyelonephritis. Clotting pr oblems. Anemia. SURGICAL HISTORY : CABG. Tubal ligation. Ectopic . Blood tranfusions. ENCOUNTER: Initial ACUITY: 1 day PAIN SCORE: 0/10 LOCATION: Bilateral neck PEAK SYSTOLIC VELOCITIES (cm/sec): ICA/CCA RATIO: Right: 1.0 Left: 1.1 ICA: Right: 83.6 Left: 101.8 CCA: Right: 85.3 Left: 93.0 ECA: Right: 80.9 Left: 66.8 VERTEBRAL: Right: 51.2 antegrade Left: 83.8 antegrade Elevated flow velocities and ICA/CCA ratios have been found to correlate with increased degrees of vessel stenosis, calculated as percentage of diameter relative to a normal segment of distal ICA/CCA FINDINGS: Antegrade flow is seen in both vertebral arteries. There is minimal atherosclerotic plaquing at the o rigin of both ICAs without any significant stenosis. CONCLUSION: No evidence for hemodynamically significant stenosis. Sushant Newberry MD on March 23, 2017 at 18:55 Board Certified Radiologist. This report was verified electronically.
[2017-03-23] MEDS: ATORVASTATIN 20 MG TAB PO SCH (20:08)
[2017-03-23] MEDS: SODIUM CHLORIDE 0.9% FLUSH 10 ML FLUSH IV FLUSH SCH (20:09)
[2017-03-24] VITALS (10 sets, daily range): BP systolic 105–147; BP diastolic 60–88; PULSE 62–75; RESP 16–18; TEMP 97.7–98.4; O2SAT 95–98
[2017-03-24 04:42] LABS: CHOLESTEROL/ HDL RATIO 5.5 RATIO; HDL CHOLESTEROL 42.5 MG/DL (40.0-60.0)
[2017-03-24] MEDS: ACETAMINOPHEN 325 MG TAB PO PRN (08:03)
[2017-03-24] MEDS: SODIUM CHLORIDE 0.9% FLUSH 10 ML FLUSH IV FLUSH SCH ×2 (08:04→21:00)
[2017-03-24] MEDS: HEPARIN SODIUM - SQ 10,000 UNITS/ML VIAL SQ SCH ×4 (08:04→22:09)
[2017-03-24] MEDS: INSULIN ASPART SUPPLEMENTAL SCALE SQ SCH ×4 (08:35→21:00)
[2017-03-24] MEDS ORDERED: PANTOPRAZOLE SOD 40 MG DELAYED RELEASE TAB PO SCH (09:00)
[2017-03-24] MEDS ORDERED: ASPIRIN 325 MG TAB PO SCH (09:00)
--- NOTE | 2017-03-24 09:47 | HHI.PR ---
Subjective Remarks Follow-up for left-sided weakness Patient stated that her left arm weakness is improving drastically. She stated that she still has the left leg weakness but then she stated that this is been chronic. She said weakness due to her chronic pain but she has been dealing with this issue for a long time. Patient stated that she asked to see pain management but her primary care would not give a referral so she is now seeing a different physician. Patient has no other complaints. Discussed case with patient's nurse and no new events. Objective Vitals Vital Signs Date Time Temp Pulse Resp B/P (MAP) Pulse Ox O2 Delivery O2 Flow Rate FiO2 03/24/17 07:40 98.4 71 16 117/74 (88) 97 03/24/17 04:03 98.1 62 17 105/60 (75) 96 03/23/17 23:17 98.1 62 17 102/57 (72) 96 03/23/17 23:00 64 03/23/17 21:07 98 03/23/17 20:41 98.0 58 17 122/82 (95) 96 03/23/17 19:48 18 03/23/17 17:00 97.9 65 18 125/83 (97) 99 03/23/17 16:05 03/23/17 14:15 97.8 78 16 137/78 (97) 99 Room Air 03/23/17 14:00 0 03/23/17 11:55 67 17 143/95 (111) 100 Room Air 03/23/17 09:49 78 19 142/78 (99) 100 Room Air I/O 03/23/17 03/23/17 03/23/17 03/24/17 03/24/17 03/24/17 07:00 15:00 23:00 07:00 15:00 23:00 Intake Total 360 ml Balance 360 ml Intake Oral 360 ml # Voids 2 1 Result Diagram: 03/23/1795703/23/1758 Objective Remarks GENERAL: in NAD CARDIOVASCULAR: Regular rate and rhythm without murmurs, gallops, or rubs. RESPIRATORY: Breath sounds equal bilaterally. No accessory muscle use. GASTROINTESTINAL: Abdomen soft, non-tender, nondistended. MUSCULOSKELETAL: No cyanosis, or edema. BACK: Nontender without obvious deformity. No CVA tenderness. 5/5 upper and lower ext strength Medications and IVs Current Medications Acetaminophen (Tylenol) 650 mg ONCE ONCE PO Last administered on 03/23/17at 12: 24; Start 03/23/17 at 12:00; Stop 03/23/17 at 12:01; Status DC Sodium Chloride (NS Flush) 2 ml BID IV FLUSH Last administered on 03/24/17at 08: 04; Start 03/23/17 at 21:00 Sodium Chloride (NS Flush) 2 ml UNSCH PRN IV FLUSH FLUSH AFTER USING IV ACCESS ; Start 03/23/17 at 15:15 Enalaprilat (Vasotec Inj) 1.25 mg Q4H PRN IV PUSH For SBP >/= 180 or DBP >/= 100; Start 03/23/17 at 15:15 Aspirin (Aspirin) 325 mg DAILY PO Last administered on 03/24/17at 08:03; Start at 09:00 Insulin Aspart (NovoLOG SUPPLEMENTAL SCALE) 1 ACHS SQ ; Start 03/23/17 at 17:00 Dextrose (D50w (Vial) Inj) 50 ml UNSCH PRN IV PUSH HYPOGLYCEMIA-SEE COMMENTS; Start 03/23/17 at 15:15 Glucagon (Glucagon Inj) 1 mg UNSCH PRN OTHER HYPOGLYCEMIA-SEE COMMENTS; Start 03/23/17 at 15:15 Heparin Sodium (Porcine) (Heparin Inj) 5,000 units Q8H SQ Last administered on 03/24/17at 08:04; Start 03/23/17 at 16:00 Albuterol Sulfate (Proair Hfa Inh) 2 puff Q6H PRN INH SHORTNESS OF BREATH; Start 03/23/17 at 15:15 Atorvastatin Calcium (Lipitor) 20 mg HS PO Last administered on 03/23/17at 20:08 ; Start 03/23/17 at 21:00 Pantoprazole Sodium (Protonix) 40 mg DAILY PO Last administered on 03/24/17 08: 03; Start 03/24/17 at 09:00 Acetaminophen (Tylenol) 650 mg Q6H PRN PO headache Last administered on at 08:03; Start 03/23/17 at 17:45 A/P Assessment and Plan 56 years old female presented with history of Left arm and leg weakness and numbness rule out TIA -CT of head showed old lacunar infarct -Pending EEG that is being done this morning. -MRI/MRA of the brain unremarkable for any acute ischemia. -No events over telemetry. -MRI of the cervical spine ordered by neurologist. -Patient currently on aspirin, lisinopril, and statin. -Pending consult from neurologist. Pending 2-D echo. Syncope mostly illicit drug effect -Most likely secondary to marijuana use. ruling out TIA. Workup so far negative. Hypertension/Hyperlipidemia -Home medication resumed. Marijuana use -Patient counseled and advised to quit smoking marijuana Heparin and SCD for DVT prophylaxis Discharge Planning Possible discharge later on today if cleared by neurologist. Larisa Mojica MD Mar 24, 2017 09:47
--- NOTE | 2017-03-24 13:13 | EKG ---
Date Performed: 03/23/2017 Time Performed: 10:05:57 PTAGE: 56 years EKG: Sinus rhythm NORMAL ECG Compared to PREVIOUS TRACING , the T-wave changes laterally have improved. There continues to be mini mal T-wave change anteroseptally that is nonspecific. PREVIOUS TRACIN09/20/2016 00.30 DOCTOR: William Rizvi Interpretating Date/Time 03/24/2017 13:12:53
--- NOTE | 2017-03-24 13:26 | RADRPT ---
EXAM DATE/TIME: 03/24/2017 12:44 [facility] COMPARISON: No previous studies available for comparison. INDICATIONS : Myelopathy. Left side weakness. MEDICAL HISTORY : Hypertension. Cerebrovascular disease. Hypercholesterolemia. SURGICAL HISTORY : CABG Tubal ligation. ENCOUNTER: Initial ACUITY: 2 day PAIN SCORE: 0/10 LOCATION: Paraspinal TECHNIQUE: Screening MRI of the entire spinal axis was performed in the sagittal and axial planes. FINDINGS: Views of the cervical spine demonstrates mild broad-based disc bulge at C5-6. Mild neural foraminal n arrowing. Mild asymmetric left-sided protrusion at C6-7 without canal stenosis. There is some slight ligamentum flavum thickening at C6-7 level. There is a suggestion of minimal T2 signal abnormality in the cord at C3-4, C5-6 and C6-7 levels. The cord is normal in caliber. The remainder of the cord is otherwise normal. The remainder of the cervical spine is otherwise normal. Slight kyphosis of the thoracic spine but no disc herniation or canal stenosis. No compression fractu re. Normal lumbar spine. No disc herniation. No fracture. CONCLUSION: 1. There is suggestion of some minimal T2 signal abnormality in the cord at C3-4, C5-6 and C6-7. 2. The thoracic and lumbar spines are normal. 1. Sb Guerrero MD on March 24, 2017 at 13:19 Board Certified Radiologist. This report was verified electronically.
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
[2017-03-24] MEDS ORDERED: GADODIAMIDE PF 287 MG/ML 20 ML VIAL (for RAD MRI) IVCONTRAST ONE (16:05)
--- NOTE | 2017-03-24 16:39 | RADRPT ---
EXAM DATE/TIME: 03/24/2017 15:56 [facility] COMPARISON: MRI SCREENING SPINE W/O CONTRAST, March 24, 2017, 12:44. INDICATIONS : Extremity weakness. CONTRAST: 1 cc Omniscan (gadodiamide) IV MEDICAL HISTORY : Hypertension. Cardiovascular disease Hypercholesterolemia. SURGICAL HISTORY : Tubal ligation. CABG ENCOUNTER: Initial ACUITY: 2 day PAIN SCORE: 0/10 LOCATION: Paraspinal TECHNIQUE: Multiplanar, multisequence MRI examination of the cervical spine was performed. FINDINGS: The marrow signal appears intact, and the spinal cord appears intact with technique. There is no abno rmal signal within the spinal cord and there is no abnormal enhancement and the questioned area on th e patient's screening examination was probably artifactually created. C2-C3: No appreciable compromise to the thecal sac, exiting nerve roots are seen. The neural forami na are patent bilaterally. No appreciable thecal sac stenosis is seen. C3-C4: No appreciable compromise to the thecal sac, exiting nerve roots are seen. The neural forami na are patent bilaterally. No appreciable thecal sac stenosis is seen. C4-C5: No appreciable compromise to the thecal sac, exiting nerve roots are seen. The neural forami na are patent bilaterally. No appreciable thecal sac stenosis is seen. C5-C6: Moderate degenerative changes are seen within the disc space and facets. There is slight neura l foramina compromise bilaterally due to bulging disc and hypertrophic changes. Slight bulging disc a nd hypertrophic changes are seen with indentation on the thecal sac and no significant compromise to the thecal sac. C6-C7: Slight bulging disc and hypertrophic changes are seen with indentation on the thecal sac and no significant compromise to the thecal sac or the exiting nerve roots.Slight degenerative changes ar e seen within the disc space and facets. C7-T1: No appreciable compromise to the thecal sac, exiting nerve roots are seen. The neural foramin a are patent bilaterally. No appreciable thecal sac stenosis is seen. CONCLUSION: Slight neural foramina compromise bilaterally C5-C6. Sushant Newberry MD on March 24, 2017 at 16:34 Board Certified Radiologist. This report was verified electronically.
[2017-03-24] MEDS ORDERED: LIDOCAINE HCL 5% PATCH T-DERMAL SCH (21:00)
[2017-03-24] MEDS: ATORVASTATIN 20 MG TAB PO SCH (22:09)
[2017-03-25 04:04] VITALS: BP 111/70; PULSE 66; RESP 18; TEMP 98.1; O2SAT 98
--- NOTE | 2017-03-25 05:07 | MG ---
cc: QUEENIE FELIZ MD Lab No: [id number] Date: 03/24/2017 Sex: F Race: DATE OF 1960 FINDINGS 8-10 Hz alpha activity, 20-50 microvolts, low-amplitude beta in the frontal channels. Good anterior-posterior gradient. No lateralizing features noted. Occasional slow rolling eye movements. Good driving with photic stimulation. No cardiac dysrhythmia. INTERPRETATION Normal awake EEG. Clinical correlation. Queenie Feliz MD MG/SSB /10:54 PM /4:59 AM
[2017-03-25 08:03] VITALS: BP 128/83; PULSE 68; RESP 16; TEMP 97.9; O2SAT 97
[2017-03-25] MEDS ORDERED: ATOR40TA16 PO (08:31)
[2017-03-25] MEDS ORDERED: LIDO1ADH4 T-DERMAL (08:31)
[2017-03-25] MEDS ORDERED: ASA325 PO (08:31)
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
--- NOTE | 2017-03-25 08:34 | HHI.DS ---
Discharge Summary Admission Date Mar 23, 2017 at 12:20 Discharge Date: Mar 25, 2017 Admitting Diagnosis TIA (1) TIA (transient ischemic attack) ICD Code: G45.9 - Transient cerebral ischemic attack, unspecified Diagnosis: Principal (2) Chronic back pain ICD Code: M54.9 - Dorsalgia, unspecified; G89.29 - Other chronic pain Diagnosis: Secondary (3) Left-sided weakness ICD Code: R53.1 - Weakness Diagnosis: Principal Procedures See hospital course Brief History - From Admission 6 years old female with history of hypertension hyperlipidemia and TIA as well as anxiety and "psychosis "as per the patient presented to the ED complaining of left arm and left leg weakness and numbness since 8 AM when she woke up this morning. Patient reported having nasal congestion and denied any other associated symptoms. With further questioning and verifying with the patient eventually she had noted that yesterday she had syncope for 10 seconds after she smoked marijuana which has happened with her before every time she smoked marijuana. CBC/BMP: 03/23/17 0958 03/23/17 0958 Significant Findings Laboratory Tests Test 03/23/17 09:58 03/24/17 03:56 Lymphocytes (%) (Auto) 48.1 % (9.0-44.0) Monocytes (%) (Auto) 10.7 % (0.0-8.0) Creatinine 1.21 MG/DL (0.50-1.00) Random Glucose 128 MG/DL (74-106) Estimat Glomerular Filtration Rate 56 ML/MIN (>89) Cholesterol Level 234 MG/DL (120-200) LDL Cholesterol 163 MG/DL (0-99) Imaging Last Impressions Entire Spine MRI 03/24/17 0000 Signed Impressions: Service Date/Time: Friday, March 24, 2017 12:44 - CONCLUSION: 1. There is suggestion of some minimal T2 signal abnormality in the cord at C3-4, C5-6 and C6-7. 2. The thoracic and lumbar spines are normal. 1. Sb Guerrero MD Cervical Spine MRI 03/24/17 0000 Signed Impressions: Service Date/Time: Friday, March 24, 2017 15:56 - CONCLUSION: Slight neural foramina compromise bilaterally C5-C6. Sushant Newberry MD Head Magnetic Resonance Angiography 03/23/17 Signed Impressions: Service Date/Time: Thursday, March 23, 2017 15:37 - CONCLUSION: Unremarkable study. Sushant Newberry MD Head CT 03/23/17 Signed Impressions: Service Date/Time: Thursday, March 23, 2017 11:09 - CONCLUSION: Chronic ischemic changes. No acute intracranial abnormality. Sb Guerrero MD Carotid Artery Ultrasound 03/23/17 Signed Impressions: Service Date/Time: Thursday, March 23, 2017 18:25 - CONCLUSION: No evidence for hemodynamically significant stenosis. Sushant Newberry MD Brain MRI 03/23/17 Signed Impressions: Service Date/Time: Thursday, March 23, 2017 15:37 - CONCLUSION: Chronic atrophic and small vessel ischemic changes without any evidence for acute hemorrhage or mass effect. Sushant Newberry MD PE at Discharge GENERAL: in NAD CARDIOVASCULAR: Regular rate and rhythm without murmurs, gallops, or rubs. RESPIRATORY: Breath sounds equal bilaterally. No accessory muscle use. GASTROINTESTINAL: Abdomen soft, non-tender, nondistended. MUSCULOSKELETAL: No cyanosis, or edema. BACK: Nontender without obvious deformity. No CVA tenderness. 5/5 upper and lower ext strength Pt update on day of discharge Follow-up for left-sided weakness. Patient denies any symptoms. Weakness and pain seemed to resolve. Before interviewing the patient she was seen walking in the hallways to the bathroom without any difficulty. She was then seen depression her teeth without any difficulty. Patient had no concerns. She felt like it was due to pain in that she is going to see pain management. Otherwise no other complaints. Denying focal neurological deficits. No other events. Discussed case with Dr. Roth since the discharge order from neurologist was placed this morning at 7:15 and neurosurgeon consult was discontinued. He stated patient can be discharge and that he cancel neurosurgeon consult since it was not indicated. Discussed case with patient's nurse. Hospital Course 56 years old female presented with history of Left arm and leg weakness and numbness rule out TIA although per patient these symptoms have been chronic but worsened. -TIA workup was done CT of head showed old lacunar infarct, MRI/MRA of the brain unremarkable for any acute ischemia, MRI of the entire spine was ordered and reviewed and was not impressive. -Symptoms seems to resolve quickly during hospital course. Neurologist recommended aspirin, lisinopril and statin. Her statin was increased a total statin 40 mg by mouth daily at bedtime since her LDL was elevated above 100. Syncope mostly illicit drug effect -Most likely secondary to marijuana use. Workup was negative. She had no episodes during hospital course. Hypertension/Hyperlipidemia -Patient antihypertensive medication was held. Throughout her hospital course she was normotensive. Will continue to hold her medication and patient to follow up as outpatient to see if she needs to restart medication. Continue with cardiac and low fat diet. Marijuana use -Patient counseled and advised to quit smoking marijuana Chronic pain -Patient was given a Lidoderm patch. She complains of her chronic pain but later during hospital course she looked very comfortable. Patient told she needs to follow-up with pain management. Pt Condition on Discharge: Stable Discharge Disposition: Discharge Home Discharge Time: <= 30 minutes Discharge Instructions DIET: Follow Instructions for: Heart Healthy Diet Activities you can perform: Regular-No Restrictions Follow up Referrals: PCP Follow-up - 1 Week New Medications: Atorvastatin (Atorvastatin) 40 Mg Tab 40 MG PO HS for Cholesterol Management, #30 TAB 0 Refills Aspirin (Px Aspirin) 325 Mg Tab 325 MG PO DAILY for TIA, #30 TAB 0 Refills Lidocaine (Lidoderm) 5 % Adh..patch 1 PATCH T-DERMAL DAILY for back pain, #30 PATCH 0 Refills Continued Medications: Albuterol 6.7 GM Inh (Proventil Hfa 6.7 GM Inh) 90 Mcg/Act Aer 2 PUFF INH Q6H PRN for SHORTNESS OF BREATH, #1 INHALER 0 Refills Methocarbamol (Robaxin) 750 Mg Tab 750 MG PO QID for Muscle Spasm, TAB 0 Refills Pantoprazole (Pantoprazole) 40 Mg Tab 40 MG PO DAILY for Reflux, #30 TAB 0 Refills Discontinued Medications: Amlodipine (Amlodipine) 10 Mg Tab 10 MG PO DAILY for Blood Pressure Management, #30 TAB 0 Refills Aspirin (Aspirin) 81 Mg Chew 81 MG CHEW DAILY, TAB 0 Refills Atorvastatin (Atorvastatin) 20 Mg Tab 20 MG PO HS for Cholesterol Management, #30 TAB 0 Refills Lisinopril (Lisinopril) 10 Mg Tab 10 MG PO DAILY, #30 TAB 2 Refills Larisa Mojica MD Mar 25, 2017 08:34
[2017-03-25 22:31] LABS: HEMOGLOBIN A1C 6.2 % (4.3-6.0)
--- NOTE | 2017-03-25 23:11 | HM ---
Date Performed: 03/23/2017 Time Performed: 21:22:00 HOOKUP DATE: 03/23/17 09:22:00 PM Sat ANALYSIS START TIME: 03/23/2017 9:27:00 PM ANALYSIS END TIME: 03/24/2017 12:55:34 PM PATIENT AGE: 56 PATIENT HEIGHT: 62 PATIENT WEIGHT: 198 DRUG LIST: room # [id number] PATIENT DIAGNOSIS: TIA TEST NARRATIVE: The patient's average heart rate was 68 BPM. Heart rates greater than 120 B PM were noted < 1% of the time. No episodes of bradycardia were noted. No pauses exceeding 2.0 s econds were noted. 1 ventricular ectopics, which represented < 1% of the total beat count, were n oted. The highest ventricular ectopic frequency occurred from 10:00 PM to 11:00 PM Sat. During this time 1 VE(s) occurred. Ventricular ectopics were observed as 1 isolated beat(s) only. No couplets or runs were noted. No supraventricular ectopics were noted. No episodes of ST depression (de fined as -1.0 mm or more) were noted in channel 1. No episodes of ST depression (defined as -1.0 mm or more) were noted in channel 2. No episodes of ST depression (defined as -1.0 mm or more) were not ed in channel 3. NO DIARY GIVEN TO PATIENT TEST INTERPRETATION: Sinus rhythm Sinus tachycardia No ventricuklar tachycardia No pause observedThere is no entry in the diary Signed by : Sj Arevalo
== END 2017-03-25 11:35 | disposition home or self-care (01) ==
LOC: NEPE 09:32 → NEDA 12:20 → NEPGCP 18:06
PROVIDERS: ADMIT Family Medicine; ATTEND Family Medicine
DX: G45.9 Transient cerebral ischemic attack, unspecified (principal); R00.0 Tachycardia, unspecified; I10 Essential (primary) hypertension; E78.00 Pure hypercholesterolemia, unspecified; K21.9 Gastro-esophageal reflux disease without esophagitis; M54.5 Low back pain; G89.29 Other chronic pain; F43.10 Post-traumatic stress disorder, unspecified; M47.812 Spondylosis without myelopathy or radiculopathy, cervical region; M47.816 Spondylosis without myelopathy or radiculopathy, lumbar region; F41.1 Generalized anxiety disorder; F12.90 Cannabis use, unspecified, uncomplicated; Z95.1 Presence of aortocoronary bypass graft; Z79.899 Other long term (current) drug therapy; Z79.82 Long term (current) use of aspirin; Z86.73 Personal history of transient ischemic attack (TIA), and cerebral infarction without residual deficits
CPT/HCPCS: 70450; 70544; 70551; 72141; 72148; 72156; 80048; 80061; 82948; 83036; 85025; 85610; 85730; 92610; 93005; 93225; 93226; 93880; 95819; 96372; 97161; 97165; 99285; A9579; G0378; G8987; G8988; G8989; J1644